=== PATIENT | male | born 1980 | race African-American/Black ===

== ENCOUNTER → 2019-04-17 | Outpatient (CLI) | payer OTHER, SELFPAY ==
[2016-10-27 22:11] VITALS: BMI 33.3
[2019-04-17 11:06] LABS: Absolute Neutrophil Count 2.6 X10^3/uL (2.0-7.7); Basophil# 0.01 X10^3/uL; Basophil% 0.2 % (0-1); Eosinophil# 0.19 X10^3/uL; Eosinophils% 3.5 % (0-5); Hematocrit 45.8 % (40-54); Hemoglobin 15.5 g/dL (13.0-16.5); Lymphocyte % 39.2 % (19-41); Mean Corp Hgb Conc 33.8 g/dL (32-36); Mean Corpuscular Hgb 29.4 pg (27.0-32.0); Mean Corpuscular Volume 86.7 fL (80-94); Mean Platelet Vol. 9.5 fl (6.2-12.0); Monocyte% 9.3 % (0-10); NRBC Flagged by Analyzer 0 % (0-5); Neutrophil # 2.56 X10^3/uL (2.7-7.7); Neutrophil % 47.8 % (47-70); Platelet Count 348 K/mm3 (150-450); RBC Distribution Width CV 14.5 % (11.6-14.6); RBC Distribution Width SD 45.7 fl (35.1-43.9); Red Blood Count 5.28 M/mm3 (4.6-6.2); White Blood Count 5.4 K/mm3 (4.4-11.0)
[2019-04-17 11:41] LABS: AST(SGOT) 18 U/L (15-37); Alanine Aminotransfer ALT/SGPT 31 U/L (16-61); Albumin, Serum 3.9 g/dL (3.2-5.0); Alkaline Phosphatase 84 U/L (45-117); Anion Gap 7 (5-15); BUN 12 mg/dL (7-18); BUN/Creat Ratio 11.1 RATIO (10-20); Calcium,Total 8.6 mg/dL (8.5-10.1); Chloride 106 mmol/L (98-107); Cholesterol 204 mg/dL (200); Creatinine, Serum 1.08 mg/dL (0.70-1.30); EST Glomerular Filtration Rate 81 mL/min (>60); Est Glom Filt Rate - Afr Amer 98 mL/min (>60); Globulin 3.8 g/dL (2.2-4.2); Glucose 94 mg/dL (74-106); High Density Lipoprotein 33 mg/dL; Potassium 3.6 mmol/L (3.5-5.1); Protein, Total 7.7 g/dL (6.4-8.2); Sodium Level 141 mmol/L (136-145); Triglycerides 303 mg/dL; Very Low Density Lipoprotein 61 mg/dL (5-40)
== END | disposition home or self-care (01) ==
LOC: LAB 10:31
DX: I10 Essential (primary) hypertension (principal)
CPT/HCPCS: 36415; 80053; 80061; 85025

== ENCOUNTER 2021-12-05 08:15 | Emergency (ER) | payer OTHER, SELFPAY ==
[2021-12-05 08:16] VITALS: BP 148/111; PULSE 101; RESP 22; TEMP 36.4; O2SAT 99; BMI 32.1
[2021-12-05 08:19] VITALS: BP 148/111; PULSE 101; RESP 22; TEMP 36.4; O2SAT 99
--- NOTE | 2021-12-05 08:23 | CT_ITS ---
STUDY: CT ABDOMEN AND PELVIS WITHOUT CONTRAST REASON FOR EXAM: Male, 41 years old. Sudden onset of right abdominal pain with vomiting. RADIATION DOSAGE (If Supplied By Facility): CTDIvol = ( 13.13 ) mGy, DLP = ( 718.56 ) mGycm TECHNIQUE: Transaxial images were obtained from the dome of the diaphragm to the symphysis pubis without oral contrast, and without intravenous contrast. Sagittal and coronal images were reconstructed. Individualized dose optimization techniques were used for this CT. COMPARISON: None. FINDINGS: The visualized lung bases are unremarkable. The visualized portions of the heart are within normal limits. Scattered hepatic granulomas. Normal gallbladder and extrahepatic biliary system. There are multiple benign calcified granulomata of the spleen. Normal pancreas. Normal bilateral adrenal glands. There is a 6.7 mm nonobstructive calculus in the midpole calyx of the right kidney. Mild right hydronephrosis and hydroureter due to a 2.7 mm calculus at the right ureterovesical junction. Normal left kidney. There is a small hiatal hernia. Normal small intestine. Normal colon. The appendix is visualized and appears normal. Normal abdominal aorta. Normal inferior vena cava. Normal retroperitoneum. Normal urinary bladder. Normal abdominal wall. Mild degree of retrolisthesis of L5 on S1. CT/Abdomen/Pelvis without Cont IMPRESSION: 2.7 mm cavernous at the right ureterovesical junction causing mild degree of right hydronephrosis and hydroureter. 6.7 mm calculus in the mid OF the right kidney. Multiple hepatic and splenic calcified granulomas. Electronically Signed: Adrián Helm MD at 9:11 EDT ,
--- NOTE | 2021-12-05 08:25 | EDS_ITS ---
HPI HPI - GI History of Present Illness Chief Complaint: Abd Pain Detail of Chief Complaint: Sudden onset right lower abdominal pain. Informant: patient Abdominal Pain/Flank Pain Onset: Today and Hours Context: Sudden Onset Timing: Continuous Quality: Sharp and Stabbing Location: RLQ Current Severity: Moderate Maximum Severity: Severe Worsened by: Nothing Relieved by: Nothing Nausea/Vomiting/Emesis GI Symptom: Positive for Nausea and Vomiting Onset: Today Severity: Mild Diarrhea/Melena/Hematochezia GI Symptom: Negative for Diarrhea, Melena and Hematochezia Associated Symptoms Associated Symptoms: Negative for Dysuria, Frequency, Hematuria and Urgency Narrative Narrative: 41-year-old male past medical history of hypertension. He did have a stone years ago. States less than an hour ago he had sudden onset of right lower quadrant abdominal pain with associated nausea and vomiting. Prior to that he felt fine. He denies any recent dysuria or hematuria. He denies any fever or chills nor any diarrhea. He denies any prior abdominal surgeries. He denies any back pain. Prior similar symptoms: No Recent Illness/Hospitalization: No PFSH PFS Medical History Hypertension Home Medications amlodipine 5 mg PO DAILY 12/05/21 [History Last Taken Unknown] atorvastatin 40 mg PO DAILY 12/05/21 [History Last Taken Unknown] hydrocodone-acetaminophen 1 tab PO Q4H PRN 4 Days #14 tab 12/05/21 [Rx Last Taken Unknown] ondansetron 4 mg PO Q8H PRN #7 tab 12/05/21 [Rx Last Taken Unknown] Allergy/AdvReac Type Severity Reaction Status Date / Time No Known Allergies Allergy Verified 12/05/21 08:18 Social History Smoking Status: Current every day smoker tobacco type: cigarettes ROS ROS ED ROS Narrative Right lower abdominal pain with nausea and vomiting. Review of Systems ROS Unobtainable: Denies due to encephalopathy Constitutional Constitutional ED: Denies fever(s) ENT ENT ED: Denies ear pain Cardiovascular Cardiovascular: Denies chest pain Respiratory/Chest Respiratory/Chest: Denies cough or dyspnea Gastrointestinal Gastrointestinal: Reports abdominal pain, nausea and vomiting; Denies constipation or diarrhea Genitourinary Genitourinary ED: Denies dysuria Musculoskeletal Musculoskeletal: Denies myalgias Integumentary Denies rash Neurologic Neurologic: Denies headache(s) Psychiatric Psychiatric: Denies depression Endocrine Endocrinology: Denies polyuria Hematologic/Lymphatic Hematologic/Lymphatic: Denies easy bruising Allergic/Immunologic Allergic/Immunologic ED: Denies urticaria EXAM Physical Exam Narrative Exam Narrative: 41-year-old male standing upright vomiting into an emesis bag. Vital signs are stable afebrile. Pressure is elevated at 148/111. HEENT exam unremarkable. Lungs are clear. Heart regular rhythm rate about 100 no murmur. Abdomen soft. Nondistended. Normal bowel sounds. No peritoneal signs. He is tender in the right lower quadrant. Back nontender. Neurologically he is awake and alert. He is moving all 4 extremities. There is no weakness. Const Vital Signs: 12/05/21 08:16 12/05/21 08:19 12/05/21 09:41 Temperature 97.5 F L 97.5 F L 98.3 F Temperature Source Temporal Temporal Oral Pulse Rate 101 H 101 H 88 Respiratory Rate 22 H 22 H 15 Blood Pressure 148/111 H 148/111 H 138/69 H Blood Pressure Mean 123 123 92 Pulse Ox 99 99 98 Oxygen Delivery Method Room Air Room Air Room Air Positive well nourished, well developed and obese; Negative for cachectic, contractures or unkempt General Appearance ED: well developed and NAD; Negative for unkempt, cachectic, contractures or pallor Nutritional Appearance: obese; Negative for cachectic HEENT Reports moist mucous membranes normocephalic and atraumatic Eyes PERRL and EOMs intact bilaterally Neck no lymphadenopathy, supple and no JVD General: Negative for tenderness Resp normal respiratory effort and clear to auscultation bilaterally Auscultation: Negative for rales, rhonchi or wheezes Cardio regular rate, regular rhythm, S1 normal heart sound, S2 normal heart sound and no murmurs GI non-distended and no masses; Negative for non-tender GI Narrative: Tenderness only in the right lower quadrant. No rebound guarding or rigidity. No distention. No hernia or mass. Inspection: Negative for abdominal distention Auscultation: normoactive bowel sounds; Negative for hypoactive bowel sounds Palpation: soft and tender; Negative for guarding, rigid or rebound tenderness present Back/Spine no CVA tenderness General Back: Negative for CVA tenderness Cervical Spine: Negative for cervical spine tenderness Extremity full ROM General Extremety ED: Negative for edema or tenderness General Extremity: Negative for edema Neuro moves all extremities Sensorium / Orientation: alert, oriented to person, oriented to place and oriented to time; Negative for orientation impaired, confused, lethargic or stuporous Motor Exam: strength 5/5 throughout Psych mental status grossly normal and thought process normal Appearance: Negative for unkempt Mood & Affect: Negative for depressed or tearful Skin no wounds General Skin Exam: Negative for jaundice or pallor Lesions: no lesions Rashes: no rashes MDM MDM MDM Narrative Medical decision making narrative: 41-year-old male with right lower quadrant abdominal pain. It was sudden onset with nausea and vomiting. She had a prior history of a kidney stone that is #1 on my differential obviously appendicitis is a possibility versus other etiologies. Will undergo a CAT scan and labs. He will be treated with IV fluids, Zofran for his nausea and Dilaudid for his pain. Repeat exam at 9:23 AM discussed test results with patient. He is still having pain and vomiting. He will be given additional Dilaudid and Zofran. We are awaiting his urinalysis. Patient is doing much better at 11 AM he will be discharged home with [place] for pain. Follow-up with urology as needed. Lab Data Attestation: I reviewed the patient's lab results. Lab results narrative: CBC shows a white count of 6. H&H is 16 and 48. Electrolytes unremarkable gap of 3 BUN of 12 creatinine 1.37. Liver enzymes are unremarkable. AST of 45. CAT scan shows a 2.7 mm right UVJ stone causing hydro and a 6.7 mm stone in the right kidney. Urinalysis shows 25 occult blood otherwise negative no whites or reds no bacteria no nitrites. Labs: Laboratory Results - last 24 hr 12/05/21 12/05/21 12/05/21 08:30 08:30 10:35 WBC 6.9 RBC 5.59 Hgb 16.9 H Hct 48.9 MCV 87.5 MCH 30.2 MCHC 34.6 RDW Std Deviation 44.4 H RDW Coeff of [place] 13.7 Plt Count 355 MPV 9.5 Immature Gran % (Auto) 0.100 Neut % (Auto) 41.1 L Lymph % (Auto) 47.3 H [place] % (Auto) 8.2 Eos % (Auto) 2.9 Baso % (Auto) 0.4 Absolute Neuts (auto) 2.8 Absolute Lymphs (auto) 3.25 Nucleated RBC % 0 Sodium 136 Potassium 4.5 Chloride 106 Carbon Dioxide 27.0 Anion Gap 3 L BUN 12 Creatinine 1.37 H Estim Creat Clear Calc 66.34 Est GFR (MDRD) Af Amer 73 Est GFR (MDRD) Non-Af 61 BUN/Creatinine Ratio 8.8 L Glucose 103 Calcium 9.3 Total Bilirubin 0.40 AST 45 H ALT 44 Alkaline Phosphatase 96 Total Protein 8.0 Albumin 4.2 Globulin 3.8 Albumin/Globulin Ratio 1.1 Urine Color Yellow Urine Clarity Clear Urine pH 7.0 Ur Specific [place] 1.010 Urine Protein Negative Urine Glucose (UA) Normal Urine Ketones Negative Urine Occult Blood 25 H Urine Nitrite Negative Urine Bilirubin Negative Urine Urobilinogen Normal Ur Leukocyte Esterase Negative Urine RBC 0-5 SEEN Urine WBC 0 SEEN Ur Squamous Epith Cells 0 SEEN Urine Bacteria 0 SEEN Urine Mucus 0 SEEN Radiography Diagnostic Testing: Clinical Impression(s) from Imaging Studies Abdomen/Pelvis CT 12/05/21 08:23 IMPRESSION: 2.7 mm cavernous at the right ureterovesical junction causing mild degree of right hydronephrosis and hydroureter. 6.7 mm calculus in the mid OF the right kidney. Multiple hepatic and splenic calcified granulomas. Electronically Signed: Adrián Helm MD at 9:11 EDT Reading Location ID and State: [address] [place] [address] , Service support , Discharge Plan Triage Chief Complaint: Abd Pain ED Provider: Rod Zhao Dx/Rx/DC Orders Clinical Impression: Abdominal pain, Nausea & vomiting Instructions: ED Kidney Stone w/ Colic Prescriptions: New hydrocodone-acetaminophen 5-325 mg tablet 1 tab PO Q4H PRN (Reason: pain) 4 Days Qty: 14 RF: 0 ondansetron 4 mg tablet,disintegrating 4 mg PO Q8H PRN (Reason: nausea and vomiting) Qty: 7 RF: 0 No Action atorvastatin 40 mg tablet 40 mg PO DAILY RF: 0 amlodipine 5 mg tablet 5 mg PO DAILY RF: 0 Primary Care Provider: Care Physician,No Primary Referrals: Harpreet Baxter MD [STAFF PHYSICIAN] - As Needed Alexander Sheets MD [STAFF PHYSICIAN] - As Needed Care Physician,No Primary [Primary Care Provider] - Activity Restrictions/Additional Instructions: You have a kidney stone in your right kidney but the one causing you pain is down by your bladder on the right. That should pass. Plenty of fluids. Rest. Motrin for pain. I also wrote you for [place] which is a narcotic pain medication. Do not drink or drive while using the [place]. Follow-up with your doctor as needed. Return if worse. Zofran as needed for nausea. Disposition Disposition: Home, Self Care
[2021-12-05 08:37] LABS: Absolute Lymphocyte Count 3.25 X10^3/uL (0.83-4.51); Absolute Neutrophil Count 2.8 X10^3/uL (2.0-7.7); Basophil# 0.03 X10^3/uL; Basophil% 0.4 % (0-1); Eosinophils% 2.9 % (0-5); Hematocrit 48.9 % (40-54); Hemoglobin 16.9 g/dL (13.0-16.5); Lymphocyte # 3.25 X10^3/ul (0.83-4.51); Lymphocyte % 47.3 % (19-41); Mean Corp Hgb Conc 34.6 g/dL (32-36); Mean Corpuscular Hgb 30.2 pg (27.0-32.0); Mean Corpuscular Volume 87.5 fL (80-94); Mean Platelet Vol. 9.5 fl (6.2-12.0); Monocyte# 0.56 X10^3/uL; Monocyte% 8.2 % (0-10); NRBC Flagged by Analyzer 0 % (0-5); Neutrophil # 2.82 X10^3/uL (2.7-7.7); Neutrophil % 41.1 % (47-70); Platelet Count 355 K/mm3 (150-450); RBC Distribution Width CV 13.7 % (11.6-14.6); RBC Distribution Width SD 44.4 fl (35.1-43.9); Red Blood Count 5.59 M/mm3 (4.6-6.2); White Blood Count 6.9 K/mm3 (4.4-11.0)
[2021-12-05] MEDS: Ondansetron 4 MG/2 ML Vial IV ×2 (08:39→09:30)
[2021-12-05] MEDS: HYDROmorphone 1 MG/ML Syringe IV ×2 (08:40→09:30)
[2021-12-05] MEDS: 0.9% Normal Saline 1,000 ML 1000 ML IV (08:41)
[2021-12-05 08:53] LABS: ALB/GLOB Ratio 1.1 RATIO (0.9-2.4); AST(SGOT) 45 U/L (15-37); Alanine Aminotransfer ALT/SGPT 44 U/L (16-61); Albumin, Serum 4.2 g/dL (3.2-5.0); Alkaline Phosphatase 96 U/L (45-117); Anion Gap 3 (5-15); BUN 12 mg/dL (7-18); BUN/Creat Ratio 8.8 RATIO (10-20); Calcium,Total 9.3 mg/dL (8.5-10.1); Chloride 106 mmol/L (98-107); Creatinine, Serum 1.37 mg/dL (0.70-1.30); EST Glomerular Filtration Rate 61 mL/min (>60); Est Glom Filt Rate - Afr Amer 73 mL/min (>60); Estimated Creatinine Clearance 66.34 ml/min; Globulin 3.8 g/dL (2.2-4.2); Glucose 103 mg/dL (74-106); Potassium 4.5 mmol/L (3.5-5.1); Sodium Level 136 mmol/L (136-145)
[2021-12-05 09:41] VITALS: BP 138/69; PULSE 88; RESP 15; TEMP 36.8; O2SAT 98
[2021-12-05 10:45] LABS: Bacteria 0 SEEN /hpf (None Seen); Mucous, Urine 0 SEEN /hpf (<or=2+); Squamous Epithelial Cells - UA 0 SEEN /hpf (0-5); White Blood Cells 0 SEEN /hpf (0-5)
[2021-12-05 10:49] LABS: Color, Urine Yellow (Yellow); Glucose, Dipstick Normal (Normal); Ketone-Dipstick Negative (Negative); Leukocyte Esterase-Dipstick Negative /ul (Negative); Nitrite-Dipstick Negative (Negative); Occult Blood-Urine 25 /ul (Negative); Protein-Dipstick Negative (Negative); Urine Bilirubin Dipstick Negative (Negative); Urine Clarity Clear (Clear); Urine Urobilinogen Normal (Normal)
[2021-12-05 10:57] LABS: Red Blood Cells-Urine 0-5 SEEN /hpf (0-5)
[2021-12-05 11:09] VITALS: BP 138/77; PULSE 62; RESP 15; O2SAT 98
== END 2021-12-05 11:10 | disposition home or self-care (01) ==
PROVIDERS: Emergency Provider Emergency Medicine; Visit Provider Emergency Medicine
DX: N13.2 Hydronephrosis with renal and ureteral calculous obstruction (principal); R11.2 Nausea with vomiting, unspecified; I10 Essential (primary) hypertension; R10.9 Unspecified abdominal pain; F17.210 Nicotine dependence, cigarettes, uncomplicated; Z79.899 Other long term (current) drug therapy; E66.9 Obesity, unspecified; Z68.32 Body mass index [BMI] 32.0-32.9, adult
CPT/HCPCS: 74176; 80053; 81001; 85025; 96361; 96374; 96375; 96376; 99284; J2405